=== PATIENT | female | born 1980 | race Caucasian/White ===

== ENCOUNTER 2023-04-23 19:24 | Emergency (ER) | payer OTHER ==
[2023-04-23 19:54] VITALS: RESP 18; TEMP 98.8
--- NOTE | 2023-04-23 20:04 | ED ---
Chest Pain HPI - General Chief Complaint: Chest Pain Stated Complaint: HBP Time Seen by Provider: 04/23/23 19:38 Source: patient Mode of arrival: ambulatory Limitations: no limitations - History of Present Illness Initial Comments: This patient is a 42-year-old woman who presents mainly because she was having persistent hypertension, but she states she also has experiences squeezing substernal sensation that she rates as mild. Patient states that that had come on a couple of hours ago. She has not had associated symptoms. The patient relates that she has history of hypertension that had not been treated for quite some time. She had returned to the [facility] here from [place] and she was experiencing vertigo, she therefore went to another facility where she was found to have hypertension and she was also diagnosed with vertigo. She subsequently was admitted at [facility] where she was treated for hypertensive emergency. She was discharged with instructions to take antihypertensives and return to the hospital if her blood pressure remained above 190/110. She states that in taking her blood pressure tonight it was persistently elevated despite taking double the doses of her antihypertensives so she therefore comes for evaluation. Patient denies headache or neurologic symptoms. No abdominal pain. MD Complaint: chest pain -: hour(s) Onset: during rest Pain Location: substernal Pain Radiation: none Severity: mild Quality: tightness Consistency: constant Improves With: nothing Worsens With: nothing Treatments Prior to Arrival: none - Related Data Home Medications Medication Instructions Recorded Confirmed Aspirin EC [Ecotrin Low Dose] 81 mg PO DAILY 04/23/23 04/23/23 Atorvastatin [Lipitor] 20 mg PO HS 04/23/23 04/23/23 Famotidine [Pepcid] 20 mg PO BID 04/23/23 04/23/23 Loratadine [Claritin] 10 mg PO DAILY 04/23/23 04/23/23 Losartan [Cozaar] 50 mg PO DAILY 04/23/23 04/23/23 amLODIPine [Norvasc] 5 mg PO DAILY 04/23/23 04/23/23 methylPREDNISolone [Medrol Dose See Taper PO DIRECTED 04/23/23 04/23/23 Pack] Allergies Allergy/AdvReac Type Severity Reaction Status Date / Time No Known Allergies Allergy Verified 04/23/23 19:58 Review of Systems ROS Statement: Those systems with pertinent positive or pertinent negative responses have been documented in the HPI. ROS Other: All systems not noted in ROS Statement are negative. Constitutional: Denies: fever, chills, weakness Eyes: Denies: eye pain, vision change Respiratory: Denies: cough, dyspnea Cardiovascular: Reports: chest pain. Denies: palpitations, orthopnea, edema, syncope Gastrointestinal: Denies: abdominal pain, vomiting, diarrhea Genitourinary: Denies: dysuria, hematuria Musculoskeletal: Denies: back pain Skin: Denies: rash Neurological: Denies: headache, weakness, numbness, confusion EKG Findings - EKG Results: EKG: sinus rhythm, normal axis, normal QRS EKG shows: bradycardia (Rate 57 bpm) Past Medical History Past Medical History: Hypertension History of Any Multi-Drug Resistant Organisms: None Reported Past Surgical History: Section, Tubal Ligation Past Psychological History: Unable to Obtain Smoking Status: Current every day smoker Past Alcohol Use History: Occasional Past Drug Use History: Marijuana General Exam Limitations: no limitations General appearance: alert, in no apparent distress Head exam: Present: atraumatic, normocephalic Eye exam: Present: normal appearance. Absent: scleral icterus, conjunctival injection Neck exam: Present: normal inspection, full ROM Respiratory exam: Present: normal lung sounds bilaterally. Absent: respiratory distress, wheezes, rales, rhonchi, stridor, chest wall tenderness, accessory muscle use Cardiovascular Exam: Present: regular rate, normal rhythm, normal heart sounds. Absent: systolic murmur, diastolic murmur, rubs, gallop GI/Abdominal exam: Present: soft. Absent: distended, tenderness, guarding, rebound, rigid Extremities exam: Present: normal inspection, normal capillary refill. Absent: pedal edema, calf tenderness Back exam: Present: normal inspection. Absent: CVA tenderness (R), CVA tenderness (L) Neurological exam: Present: alert, oriented X3. Absent: motor sensory deficit Skin exam: Present: warm, dry, intact, normal color. Absent: rash Course Vital Signs 04/23/23 04/23/23 04/23/23 19:27 19:51 20:24 Temperature 98.8 F Pulse Rate 71 60 84 Respiratory 18 18 18 Rate Blood Pressure 191/114 197/114 174/101 O2 Sat by Pulse 99 98 97 Oximetry 04/23/23 04/23/23 04/24/23 22:56 23:54 00:12 Temperature Pulse Rate 74 71 54 L Respiratory 18 18 16 Rate Blood Pressure 172/101 160/99 146/82 O2 Sat by Pulse 96 97 96 Oximetry 04/24/23 00:44 Temperature Pulse Rate 57 L Respiratory 18 Rate Blood Pressure 136/80 O2 Sat by Pulse 96 Oximetry Chest Pain MDM - MDM The patient had a chest x-ray that I interpreted as negative for acute infiltrate, pneumothorax, congestive heart failure Was pt. sent in by a medical professional or institution (, [facility]O, FLEXO OPERATOR, urgent care, hospital, or shelter...) When possible be specific @ -[No] Did you speak to anyone other than the patient for history (EMS, parent, family, police, friend...)? What history was obtained from this source @ -[No] Did you review nursing and triage notes (agree or disagree)? Why? @ -[I reviewed and agree with nursing and triage notes] Were old charts reviewed (outside hosp., previous admission, EMS record, old EKG, old radiological studies, urgent care reports/EKG's, shelter records)? Report findings @ -[No old charts were reviewed] Differential Diagnosis (chest pain, altered mental status, abdominal pain women, abdominal pain men, vaginal bleeding, weakness, fever, dyspnea, syncope, headache, dizziness, GI bleed, back pain, seizure, CVA, palpatations, mental health, musculoskeletal)? @ -[Differential Chest Pain: Stable Angina, Unstable Angina, STEMI, NSTEMI Aortic Dissection, Pneumothorax, Musculoskeletal, Esophageal Spasm GERD, Cholecystitis, Pancreatitis, Zoster, this is not meant to be an all-inclusive list. EKG interpreted by me (3pts min.). @ -I interpreted as above] X-rays interpreted by me (1pt min.). @ -I interpreted as above CT interpreted by me (1pt min.). @ -[None done] U/S interpreted by me (1pt. min.). @ -[None done] What testing was considered but not performed or refused? (CT, X-rays, U/S, labs)? Why? @ -[None] What meds were considered but not given or refused? Why? @ -[None] Did you discuss the management of the patient with other professionals (professionals i.e. , EDIL[facility]O, FLEXO OPERATOR, lab, RT, psych nurse, social work specialist, solar energy system installer helper, teacher, police booking officer, case liner)? Give summary @ -[No] Was smoking cessation discussed for >3mins.? @ -[No] Was critical care preformed (if so, how long)? @ -[No] Were there social determinants of health that impacted care today? How? (Homelessness, low income, unemployed, alcoholism, drug addiction, transportation, low edu. Level, literacy, decrease access to med. care, alf, rehab)? @ -[No] Was there de-escalation of care discussed even if they declined (Discuss DNR or withdrawal of care, Hospice)? DNR status @ -[No] What co-morbidities impacted this encounter? (DM, HTN, Smoking, COPD, CAD, Cancer, CVA, ARF, Chemo, Hep., AIDS, mental health diagnosis, sleep apnea, morbid obesity)? @ -[Hypertension Was patient admitted / discharged? Hospital course, mention meds given and route, prescriptions, significant lab abnormalities, going to OR and other pertinent info. @ -[The patient is a 42-year-old woman with chronic hypertension who presents with elevated blood pressure. She did have resolution of symptoms with treatment here, is feeling better and would like to go home. We discussed appropriate further care as well as return parameters Undiagnosed new problem with uncertain prognosis? @ -[No] Drug Therapy requiring intensive monitoring for toxicity (Heparin, Nitro, Insulin, Cardizem)? @ -[No] Were any procedures done? @ -[No] Diagnosis/symptom? @ -[Acute on chronic hypertension Acute, or Chronic, or Acute on Chronic? @ -[default] Uncomplicated (without systemic symptoms) or Complicated (systemic symptoms)? @ -[default] Side effects of treatment? @ -[No] Exacerbation, Progression, or Severe Exacerbation? @ -[No] Poses a threat to life or bodily function? How? (Chest pain, [place], [place], pneumonia, PE, COPD, DKA, ARF, appy, cholecystitis, CVA, Diverticulitis, Homicidal, Suicidal, threat to staff... and all critical care pts) @ -[No] Disposition Clinical Impression: Hypertension Disposition: HOME SELF-CARE Condition: Good Instructions (If sedation given, give patient instructions): Hypertension (ED) Is patient prescribed a controlled substance at d/c from ED?: No Referrals: Magan Galloway MD [Primary Care Provider] - 1-2 days
--- NOTE | 2023-04-23 20:18 | XR ---
EXAMINATION TYPE: XR chest 2V DATE OF EXAM: 04/23/2023 8:11 PM CLINICAL INDICATION:Female, 42 years old with history of Chest Pain; [facility] COMPARISON: None TECHNIQUE: XR chest 2V. Frontal and lateral views of the chest.. FINDINGS: Lines/Tubes/Devices: No indwelling lines are seen. Heart/mediastinum: Heart size upper normal. Mediastinum appears normal. Pulmonary vascularity: Not increased, Lungs/Pleura: There is no evidence of pleural effusion, focal consolidation, or pneumothorax. Musculoskeletal: No acute osseous abnormality demonstrated in the limits of the exam. Other findings: None. IMPRESSION: No acute cardiopulmonary abnormality.
[2023-04-23] MEDS: cloNIDine HCL 0.2 MG TAB PO STA (20:22)
[2023-04-23 22:25] LABS: Basophils # (A) 0.1 k/uL (0-0.2); Basophils % (A) 1 %; Eosinophils # (A) 0.3 k/uL (0-0.7); Eosinophils % (A) 3 %; HCT 43.8 % (34.0-46.0); HGB 14.3 gm/dL (11.4-16.0); Lymphocytes # (A) 2.2 k/uL (1.0-4.8); Lymphocytes % (A) 26 %; MCH 29.7 pg (25.0-35.0); MCHC 32.6 g/dL (31.0-37.0); Mean Platelet Volume 9.3; Monocytes # (A) 0.4 k/uL (0-1.0); Monocytes % (A) 5 %; Neutrophils # (A) 5.4 k/uL (1.3-7.7); Neutrophils % (A) 63 %; Platelet Count 195 k/uL (150-450); RBC 4.82 m/uL (3.80-5.40); RDW 14.9 % (11.5-15.5); WBC 8.6 k/uL (3.8-10.6)
[2023-04-23] MEDS: ENALAPRILAT 1.25 MG/ML 1 ML VIAL IVP STA (23:04)
[2023-04-23 23:33] LABS: ALT 44 U/L (4-34); African American GFR (CKD) >90 (>60 ml/min/1.73 sqM); Anion Gap 8 mmol/L; Blood Urea Nitrogen 18 mg/dL (7-17); Calcium 8.9 mg/dL (8.4-10.2); Carbon Dioxide 25 mmol/L (22-30); Chloride 108 mmol/L (98-107); Glucose 111 mg/dL (74-99); Non-African American GFR(CKD) >90 (>60 ml/min/1.73 sqM); Sodium 141 mmol/L (137-145); Total Bilirubin 0.5 mg/dL (0.2-1.3); Total Protein 6.8 g/dL (6.3-8.2)
[2023-04-23 23:39] LABS: AST 21 U/L (14-36); Alkaline Phosphatase 77 U/L (38-126); Magnesium 2.2 mg/dL (1.6-2.3); Potassium 4.2 mmol/L (3.5-5.1)
[2023-04-23 23:41] LABS: NT-Pro-B-Type Natriuretic Pept 168 pg/mL
[2023-04-24 00:46] VITALS: BP 136/80; PULSE 57
== END 2023-04-24 00:46 | disposition home or self-care (01) ==
LOC: EC 19:24
DX: I10 Essential (primary) hypertension (principal); F17.200 Nicotine dependence, unspecified, uncomplicated; Z79.82 Long term (current) use of aspirin; Z79.899 Other long term (current) drug therapy
CPT/HCPCS: 36415; 71046; 80053; 83735; 83880; 84484; 85025; 93005; 96374; 99285